=== PATIENT | female | born 1940 | race Caucasian/White ===

== ENCOUNTER 2017-03-22 14:58 | Emergency (ER) | payer MEDICARE ==
[~2017-03-22] VITALS: Ht 157.5 cm; Wt 85.0 kg
[~2017-03-22 14:58] MED LIST: COU25 PO; COU5 PO; FURO40TA PO; LISI10TA PO; POTA20TA16 PO; SIMVASTATIN 40 MG; TOP100 PO; [UNRECOGNIZED DRUG - CODE] PO
[2017-03-22 15:01] VITALS: BP 112/77; PULSE 85; RESP 16; O2SAT 97
--- NOTE | 2017-03-22 15:21 | ED.REPORT ---
HPI-General Illness Date of Service Mar 22, 2017 ED Provider: Jesu Pino MD Patient is a 76 year old female with a hx of CVA, Afib, CHF, and HTN on Warfarin who presents to the ED from urgent care complaining of lightheadedness onset yesterday with one episode this morning. Her symptoms have presented when sitting up from bed or when standing up quickly from a chair. Associated symptoms include transient SOB and nausea. She denies LOC, melena, hematochezia , coffee ground emesis, chest pain, chills, fevers, abdominal pain, or any other symptoms. She recently had gout in both ankles. Per family she had similar symptoms when she had GI bleeding 5 mo ago but at that time had presented with coffee-ground emesis and blood in her stool which she does not have today. She is on Lasix. Her INR was 1.8 earlier today. She admits that she does not drink enough fluids and has been feeling as if she is dehydrated lately. Nursing Notes Stated Complaint: FAINTING/SYMPTOMATIC A-FIB/SENT FROM Chief Complaint: Dysrhythmia/Cardiac Nursing Notes Reviewed: Yes Allergies: Coded Allergies: No Known Allergies (Verified , 04/04/12) Scheduled ([simvastatin 40 mg ]) DAILY Ferrous Sulfate-Expunged Drug, Do Not Renew! (Ferrous Sulfate-Expunged Drug, Do Not Renew!) 220 Mg/5 Ml Elixir 220 MG PO BID Furosemide-Expunged Drug, Do Not Renew! (Lasix-Expunged Drug, Do Not Renew!) 40 Mg Tablet 40 MG PO DAILY Lisinopril-Expunged Drug, Do Not Renew! (Lisinopril-Expunged Drug, Do Not Renew! ) 10 Mg Tablet 10 MG PO DAILY Metoprolol Suc-Expunged Drug, Do Not Renew! (Metoprolol Suc-Expunged Drug, Do Not Renew!) 100 Mg Tab.sr.24h 100 MG PO DAILY Potassium Chl-Expunged Drug, Do Not Renew! (L-Yni-Zvazxegf Drug, Do Not Renew!) 20 Meq Tab.prt.sr 20 MEQ PO DAILY Warfarin Inactive Drug Do Not Use (Coumadin Inactive Drug Do Not Use) 5 Mg Tablet 5 MG PO SUN,TUES,THURS,SAT Warfarin Inactive Drug Do Not Use (Coumadin Inactive Drug Do Not Use) 2.5 Mg Tablet 2.5 MG PO [id number] General Time Seen by MD: 15:16 Chief Complaint Other (Lightheadedness ) Hx Obtained From: Patient, Other family... Arrived By: Walk-in Sudden in Onset?: Yes Onset Occurred: Yesterday Symptom Duration: Since onset Past Medical History Past Medical History GI bleed CVA CHF HTN Afib on Warfarin Past Surgical History Denies Social History Alcohol Use: Denies alcohol use Review of Systems Full Review of Systems Constitutional: Denies: Chills, Fever Respiratory: Reports: Shortness of breath Cardiovascular: Denies: Chest pain GI: Reports: Nausea, Denies: Abdominal pain, Hematemesis, Hematochezia, Melena Neurologic: Reports: Lightheaded, Denies: Change LOC Complete sys rev & neg: except as marked. Physical Exam Vital Signs Vital Signs Date Time Temp Pulse Resp B/P Pulse Ox O2 Delivery O2 Flow Rate FiO2 03/22/17 17:41 75 16 126/57 100 Room Air 03/22/17 16:03 70 16 144/50 97 Room Air 03/22/17 15:01 36.1 85 16 112/77 97 Room Air Initial VS: Reviewed Neck: Full range of motion Skin: Warm, Dry General/Constitutional: Awake, Alert, Well developed Head / Eyes: Atraumatic, Normocephalic Mouth: Positive: Mucous membranes dry Respiratory / Chest: Breath sounds NL, Breath sounds = bilat, No respiratory distress Cardiovascular: Heart sounds NL, No gallop, No murmurs, No rubs, Peripheral circulation NL, Pulses = bilaterally Heart Rate / Rhythm: Positive: Irregular rhythm Abdomen: Atraumatic, Soft, Non-tender Back: No midline vertebral tend Neurologic: Oriented X3, Speech NL, CN II - XII intact No facial droop 5/5 strength in all 4 extremities Interpretation & Diagnostics Lab Results Interpretation Result Diagram: 03/22/17 1500 03/22/17 1500 Test 03/22/17 15:00 White Blood Count 10.7th/mm3 (3.8-10.1) Red Blood Count 4.55mil/mm3 (3.90-5.20) Hemoglobin 12.3g/dL (12.0-15.6) Hematocrit 39.5% (35.0-46.0) Mean Corpuscular Volume 86.8fL (81-100) Mean Corpuscular Hemoglobin 27.0pg (27.0-35.0) Mean Corpuscular Hemoglobin Concent 31.1% (32.0-37.0) Red Cell Distribution Width 17.1% (12.3-15.4) Platelet Count 262bil/L (150-400) Neutrophils (%) (Auto) 65.6% (40-74) Lymphocytes (%) (Auto) 24.4% (14-46) Monocytes (%) (Auto) 8.3% (4-12) Eosinophils (%) (Auto) 0.9% (0-5) Basophils (%) (Auto) 0.3% (0-3) Sodium Level 136mEq/L (134-144) Potassium Level 3.6mEq/L (3.5-5.2) Chloride Level 99mEq/L (97-108) Carbon Dioxide Level 23mmol/L (18-29) Blood Urea Nitrogen 13mg/dL (8-27) Creatinine 1.10mg/dL (0.57-1.00) Estimat Glomerular Filtration Rate 69mL/min (>59) Glucose Level 117mg/dL (60-99) Calcium Level 9.4mg/dL (8.5-10.1) Magnesium Level 1.8mg/dL (1.6-2.6) Total Bilirubin 0.9mg/dL (0.0-1.2) Aspartate Amino Transf (AST/SGOT) 19U/L (0-50) Alanine Aminotransferase (ALT/SGPT) 9U/L (0-32) Alkaline Phosphatase 79U/L (25-165) Troponin T < 0.010ug/L (0.0-0.011) Total Protein 8.1g/dL (6.4-8.4) Albumin 3.4g/dL (3.4-5.0) ECG Interpretation ECG Interpretation: no prior afib rate 70 nL axis and interval no ST elevation or T wave abnL Time: 15:30 Interpreted by: ED physician X-Ray Chest Interpretation Chest Xray Interpretation: IMPRESSION: Localized retrocardiac atelectasis, aspiration, or early pneumonia. Dictated by: Clyde Mccall M.D. on 03/22/2017 at 14:47 Approved by: Clyde Mccall M.D. on 03/22/2017 at 14:48 View: Portable, 1 view Interpretation / Wet Read by: Interpret - Radiologist Re-Eval/Medical Decision Med Decision/Clinical Course Patient is a 76 year old female with a hx of CVA, Afib, CHF, and HTN on Warfarin who presents to the ED from urgent care complaining of lightheadedness onset yesterday with one episode this morning. Her symptoms have presented when sitting up from bed or when standing up quickly from a chair. Associated symptoms include transient SOB and nausea. She denies LOC, melena, hematochezia , coffee ground emesis, chest pain, chills, fevers, abdominal pain, or any other symptoms. She recently had gout in both ankles. Per family she had similar symptoms when she had GI bleeding 5 mo ago but at that time had presented with coffee-ground emesis and blood in her stool which she does not have today. She is on Lasix. Her INR was 1.8 earlier today. She admits that she does not drink enough fluids and has been feeling as if she is dehydrated lately. Here in the emergency department the patient is afebrile stable vital signs and examination as above. Of note she has clinically positive orthostatic vital signs. labs: leukocytosis 10.7 cbc otherwise unremarkable CMP unremarkable trop neg Chest x-ray demonstrated no acute cardiopulmonary process. EKG was obtained and interpreted by myself as documented above. The patient presents with near syncope. Based on history, lack of post-ictal phase, or incontinence I think it is unlikely to be related to seizure. DDx includes but is not limited to: ACS, arrhythmia, PE, dissection, AAA, hypovolemia or vasovagal syncope. ECG does not show ischemia or conduction abnormality. There were no arrhythmias on telemetry but this cannot be excluded. PE, dissection and AAA are unlikely based on history, exam and evaluation. Patient has history consistent with dehydration, had positive orthostatic vital sign changes and improvement with IV hydration. Discussed findings as above with patient and family. She will follow up with her primary care physician regarding ongoing diuresis as I wonder whether or not this is necessary. She is advised to make sure that she stays orally hydrated, stand up slowly with assistance. She feels much better and does not desire admission to the hospital or further workup at this time. I explained it is very important to follow-up in the next 1-2 days with her primary care physician to discuss ongoing medication management and for reassessment. Prior to discharge follow-up and return precautions were reviewed in detail with the patient and her family who verbalized understanding and agreement with the plan. The patient was discharged in stable condition. Time of Eval: 16:59 Re-Evaluation/Progress Note: Discussed plan for discharge. Patient understands and agrees with plan. All questions addressed at this time. Counseled Regarding: Diagnosis, Lab results, Need for follow-up, Need for admission Discharge & Departure Primary Impression: Dehydration Additional Impressions: Orthostatic lightheadedness Orthostatic hypotension Pre-syncope Disposition: Home Discharge Condition All VS Reviewed: Yes Condition: Stable Additional Instructions: Thank you for seeking care at the emergency room. It is difficult for us to make definitive diagnoses in the ED but we believe that you are experiencing dehydration causing you to be lightheaded. Our primary goal today in the ED was to evaluate you for any life-threatening conditions. Your evaluation was reassuring. We are not sure that you need to be on a water pill. Please follow up this week with your primary care doctor to discuss this further. Make sure to drink plenty of fluids in the meantime, stand up very slowly with assistance from family members. You should return to the ED immediately if you develop any worsening symptoms, fevers, vomiting, cough, shortness of breath, chest pain, lightheadedness, weakness or any other concerning signs or symptoms. Thank you for letting us partake in your care today. Referrals: Jesus Barrow MD (PCP) Scribe Attestation Portions of this note were transcribed by Tami Roy. I, Dr. Pino personally performed the history, physical exam and medical decision-making; I reviewed and confirmed the accuracy of the information in the transcribed note. Signed by: Tami Roy 03/22/2017, [id number] copies to: Jesus Barrow MD, Beck O MD Mar 22, 2017 15:21 TAMI ROY Mar 22, 2017 16:52
[2017-03-22 15:27] LABS: BASOPHILS % (AUTO) 0.3 % (0-3); EOSINOPHILS % (AUTO) 0.9 % (0-5); MONOCYTES % (AUTO) 8.3 % (4-12); Mean Corpuscular Volume 86.8 fL (81-100); NEUTROPHILS % (AUTO) 65.6 % (40-74); Platelet Count 262 bil/L (150-400)
[2017-03-22 15:40] LABS: TROPONIN T < 0.010 ug/L (0.0-0.011)
[2017-03-22 15:49] LABS: Magnesium 1.8 mg/dL (1.6-2.6)
--- NOTE | 2017-03-22 15:49 | DRSVH ---
PROCEDURE: X-RAY CHEST ONE VIEW, PORTABLE ([id number]) INDICATIONS: 76 year-old female with dizziness. TECHNIQUE: One view of the chest was acquired. COMPARISON: [facility], , CHEST 1VW (PORTABLE), 05/18/2009, 10:43. FINDINGS: Surgical changes and devices: None. Lungs and pleura: No pleural effusions or pneumothorax. Lungs are clear, except for localized retro cardiac opacity. Mediastinum: Mediastinal contours appear normal. Heart size is normal. There is aortic atheroscler osis. Bones and chest wall: No suspicious bony lesions. Overlying soft tissues appear unremarkable. IMPRESSION: Localized retrocardiac atelectasis, aspiration, or early pneumonia. Dictated by: Clyde Mccall M.D. on 03/22/2017 at 14:47 Approved by: Clyde Mccall M.D. on 03/22/2017 at 14:48
[2017-03-22 16:03] VITALS: BP 144/50; PULSE 70; RESP 16; O2SAT 97
[2017-03-22 17:41] VITALS: BP 126/57; PULSE 75; RESP 16; O2SAT 100
== END 2017-03-22 17:42 | disposition home or self-care (01) ==
LOC: SED 14:58
DX: E86.0 Dehydration (principal); R42 Dizziness and giddiness; I95.1 Orthostatic hypotension; R55 Syncope and collapse; I10 Essential (primary) hypertension; Z86.73 Personal history of transient ischemic attack (TIA), and cerebral infarction without residual deficits; I48.91 Unspecified atrial fibrillation; I50.9 Heart failure, unspecified; Z79.01 Long term (current) use of anticoagulants
CPT/HCPCS: 36415; 71010; 80053; 83735; 84484; 85025; 85610; 93005; 99285; A4300; G0463